=== PATIENT | male | born 1940 | race Caucasian/White ===

== ENCOUNTER 2016-12-04 11:12 | Inpatient (IN) | payer OTHER, MEDICARE ==
[~2016-12-04] VITALS: Ht 180.3 cm; Wt 94.1 kg
--- NOTE | ~2016-12-04 | CON ---
[place], [place] REPORT OF CONSULTATION NAME: [facility] #: [id number] UNIT #: [id number] ROOM: [facility] DOCTOR: ELISE WHITNEY PRIYA BIRTHDATE: [birth year] DOS: 12/05/2016 HISTORY OF PRESENT ILLNESS: This is a 76-year-old male who was admitted for his third digit of his left foot. The patient states that he dropped a hammer on his third left toe about 2 months ago. He has been applying ointment on it daily and the toe has become more painful and discolored over the course of 2 months. He went to see his director mobile media solutions in the [place] last week and they recommended him coming to [facility] as the toe has started to increase in size and become more infected. He denies any fevers, chills, nausea, vomiting. He denies any chest pain, shortness breath, lightheadedness, nausea, vomiting, abdominal pain and melena. PAST MEDICAL HISTORY: Diabetes, hyperlipidemia, hypertension. FAMILY HISTORY: None. SOCIAL HISTORY: Denies any illicit drug use. Consumes alcohol 2-3 times a day and has a history of smoking and he quit 3 years ago. ALLERGIES: No known drug allergies. MEDICATIONS: Please see MAR for current list of medications. REVIEW OF SYSTEMS: CONSTITUTIONAL: Denies nausea, vomiting, fever, chills. HEENT: Denies vision changes, hearing loss, nasal discharge, ear discharge and denies dysphagia. CARDIOVASCULAR: Denies chest pain, palpitations, lower extremity edema, diaphoresis. RESPIRATORY: Denies shortness of breath, cough, wheezing and dyspnea on exertion. ABDOMINAL: Denies abdominal pain, nausea, vomiting, diarrhea, constipation. GENITOURINARY: Denies dysuria, hematuria or increased frequency. NEUROLOGIC: Denies confusion, dizziness. Admits to decreased sensation to the digits bilateral. PSYCHIATRIC: Denies depression, anxiety and substance abuse. ENDOCRINE: Denies polydipsia or heat intolerance or cold intolerance. SKIN: Third digit is gangrenous. Denies any other lesions. PHYSICAL EXAMINATION: VITAL SIGNS: Temperature 97.9, pulse 92, blood pressure 132/58, respiratory rate 18. LABORATORY DATA: White count 7.3, hemoglobin 8.5, hematocrit 26.3, platelets 201. IMAGING: Left foot x-ray done, showed third digit soft tissue swelling with subcutaneous gas, suggestive of gas gangrene. No radiographic findings of osteomyelitis noted. ABIs were performed and demonstrate occlusion of the left common femoral artery and mid right femoral artery. [place], [place] REPORT OF CONSULTATION NAME: MARK RODRIGUEZ UNIT #: [id number] ROOM: [facility] DOCTOR: ELISE WHITNEY PRIYA BIRTHDATE: [birth year] LOWER EXTREMITY PHYSICAL EXAMINATION: DP and PT pulses are nonpalpable, bilateral. CFT is delayed by 5 seconds to digits 1 through 5 bilateral. There is no hair present to bilateral lower extremities. The skin appears to be shiny and in appearance. NEUROLOGIC: Protective sensation is decreased to digits 1 through 5 bilateral with some [place] monofilament. Decreased muscle tone and symmetry noted to bilateral lower extremities. MUSCULOSKELETAL: 4/5 muscle strength noted in bilateral lower extremities. There is no pain on palpation to the third digit of the left foot. Equinus contracture noted to bilateral lower extremities. There is also hammertoe contractures noted to digits 2 through 5 bilateral. DERMATOLOGIC: The third digit has a gangrenous appearance. An odor and discharge noted from the base of the proximal phalanx. Upon compression, there is minimal seropurulent drainage noted. There is localized erythema and edema and Calor noted to the dorsal aspect of the left foot. There are no other skin lesions or open lesions noted to bilateral lower extremities. ASSESSMENT: 1. 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 2. Diabetes mellitus with peripheral neuropathy. 3. Peripheral vascular disease. PLAN: 1. The patient is seen and examined. 2. Dressings consist of Betadine and dry sterile dressing. 3. The patient's vitals are stable. He will need vascular followup. He is already being sent to [place] for Vascular Surgery workup. 4. He will follow up with a director [employer] media [employer] at [place] and recommend an amputation to be performed to the third digit of the left foot. KATY WHITNEY DPM CM:CONSTR:REPORT OF CONSULTATION 1412 12/05/16 220 interface
[~2016-12-04 11:12] MED LIST: ASPIRIN81 M1 PO; B12100 MC1 PO; CINNAMON500 MG PO; HYDROCHLOROTHIA25 MG PO; LISINOPRIL20 MG PO; METFORMIN1000 MG PO; MULTIPLE VITAMI1 CAP PO; SIMVASTATIN40 MG PO; VICODIN 5/500 505 MG PO
[2016-12-04 11:44] VITALS: BP 126/47
[2016-12-04] MEDS ORDERED: KEFLEX500 M1 PO (11:51)
[2016-12-04] MEDS ORDERED: GLIPIZIDE5 MG PO (11:51)
[2016-12-04] MEDS ORDERED: LANTUS SOL100 UNIT/1 SQ (11:52)
[2016-12-04] MEDS ORDERED: NORVASC10 MG PO (11:53)
[2016-12-04 13:00] LABS: BASO % 0.1 % (0.0-1.0); EOS # 0.1 10*3/uL (0.0-0.4); EOS % 1.3 % (1.0-4.0); HEMATOCRIT 27.7 % (42.0-52.0); HEMOGLOBIN 9.1 g/dl (14.0-18.0); LYMPH # 0.8 10*3/uL (1.3-4.4); MEAN CELL VOLUME 91.1 fl (80.0-94.0); MEAN CORPUSCULAR HGB 29.9 pg (27.0-31.0); MEAN CORPUSCULAR HGB CONC 32.9 g/dl (33.0-37.0); MEAN PLATELET VOLUME 9.7 fl (9.6-12.3); MONO # 0.5 10*3/uL (0.1-1.0); MONO % 6.9 % (3.0-9.0); PLATELET COUNT AUTOMATED 202 10*3/uL (130-400); RED BLOOD COUNT 3.04 10*6/uL (4.50-5.90); RED CELL DISTRI WIDTH 13.2 % (0-14.5); WHITE BLOOD COUNT 7.6 10*3/uL (4.8-10.8)
[2016-12-04 13:09] LABS: ACT PARTIAL THROMBO TIME 27.1 SECONDS (20.8-31.5); INTERNATIONAL NORM RATIO 1.1 (2.0-3.5)
[2016-12-04 13:14] LABS: ALBUMIN 2.8 gm/dl (3.1-4.5); ALKALINE PHOSPHATASE 81 U/L (45-117); BUN 23 mg/dl (7-24); CHLORIDE 108 mmol/L (98-107); CREATININE 0.99 mg/dL (0.70-1.30); LIPASE 101 U/L (73-393); POTASSIUM 4.3 mmol/L (3.5-5.1); SGOT/AST 18 IU/L (3-35); SGPT/ALT 23 U/L (12-78); SODIUM 141 mmol/L (136-145); TOTAL PROTEIN 7.9 gm/dL (6.4-8.2); TROPONIN I < 0.015 ng/ml (<0.045)
--- NOTE | 2016-12-04 13:29 | NUR ---
REPORT RECEIVED FROM GERARDO PAULINO. PT VOICES NO C/O AT THIS TIME. VITALS STABLE. HEP LOCK INSERTED.LEFT 3 TOE BLACKENED. TOP OF FOOT IS RED,SWOLLEN,PP FAINT,CAP REFILL <3 SEC.--ARMAAN LEWIS RN
[2016-12-04 13:31] VITALS: BP 126/63
--- NOTE | 2016-12-04 14:00 | NUR ---
Time: 1399 A 76 year old MALE admitted to 5E under services of EARNEST KRISHNAN DO. Pt. arrived via stretcher from ER. Chief complaint: CELLULITIS OF AN ABCESS OF THE LEFT FOOT WWITH NECROSIS OF THE 3RD LEFT TOE.. MARY ANN ALEXANDRA
--- NOTE | 2016-12-04 14:08 | NUR ---
PT TO XRAY AT THIS TIME.---ARMAAN LEWIS RN
--- NOTE | 2016-12-04 14:49 | NUR ---
IV ZOSYN HANGING NOW.IV VANC SENT TO FLOOR ,NURSE MARY ANN MADE AWARE.---ARMAAN LEWIS RN
[2016-12-04 15:08] VITALS: BP 118/53
--- NOTE | 2016-12-04 15:50 | NUR ---
DR. JACK AND DR FROST WERE NOTIFIED AND FACE SHEET WAS FAXED TO THE OFFICE. DR ANGUIANO WAS NOTIFIED AND MEDICATIONS WERE REVIEWED.
[2016-12-04 16:00] VITALS: BP 127/54
--- NOTE | 2016-12-04 19:45 | NUR ---
PATIENT IS AWAKE ALERT, AMD ORIENTED X3. PLEASANT AND COOPERATIVE. LUNGS ARE CLEAR AND DIMINISHED THROUGHOUT LUNGFIELDS. ROOM AIR. ABDOMEN IS SOFT AND NON-TENDER UPON PALPATION, BOWEL SOUNDS ARE NROAMOCTIVE X 4 QUADS. LLE RED FROM MID CALF DOWN, 2+ EDEMA , 3RD TOE WRAPPED IN GAUZE, ABLE TO VISUALIZE THE TIP OF TOE,. BLACKISH GREEN IN COLOR, BASE OF TOE APPEARS TO BE BLISTERED YELLOWISH COLOR. NO IRENE TO RLE, PPP. PATIENT DENIES ANY PAIN OR DISCOMFORT. CALL LIGHT IS IN REACH.
[2016-12-04 20:10] VITALS: BP 131/59
--- NOTE | 2016-12-04 21:00 | NUR ---
PATIENT REQUESTED PAIN MEDICATION FOR C/O PAIN IN HIS LEFT FOOT. RATES THIS PAIN 9/10 ON PAIN SCALE. DESCRIBES PAIN THROBBING. PRN NORCO GIVEN AT THIS TIME. CALL LIGHT IS IN REACH.
[2016-12-05] VITALS: BP 121/57
[2016-12-05 06:25] LABS: BASO % 0.4 % (0.0-1.0); EOS # 0.1 10*3/uL (0.0-0.4); EOS % 1.1 % (1.0-4.0); HEMATOCRIT 26.3 % (42.0-52.0); HEMOGLOBIN 8.5 g/dl (14.0-18.0); LYMPH # 0.7 10*3/uL (1.3-4.4); MEAN CELL VOLUME 91.3 fl (80.0-94.0); MEAN CORPUSCULAR HGB 29.5 pg (27.0-31.0); MEAN CORPUSCULAR HGB CONC 32.3 g/dl (33.0-37.0); MONO # 0.6 10*3/uL (0.1-1.0); MONO % 7.6 % (3.0-9.0); NEUT # 5.8 10*3/uL (2.3-7.9); NEUT % 79.1 % (47.0-73.0); PLATELET COUNT AUTOMATED 201 10*3/uL (130-400); RED BLOOD COUNT 2.88 10*6/uL (4.50-5.90); RED CELL DISTRI WIDTH 13.1 % (0-14.5); WHITE BLOOD COUNT 7.3 10*3/uL (4.8-10.8)
[2016-12-05 06:54] LABS: ALBUMIN 2.6 gm/dl (3.1-4.5); ALKALINE PHOSPHATASE 71 U/L (45-117); BUN 18 mg/dl (7-24); CHLORIDE 111 mmol/L (98-107); CHOLESTEROL 103 mg/dL (<200); CREATININE 0.92 mg/dL (0.70-1.30); HDL CHOLESTEROL 24 mg/dl (40-60); LDL CHOLESTEROL 56 mg/dL (9-159); PHOSPHOROUS 4.5 mg/dL (2.5-4.9); POTASSIUM 3.6 mmol/L (3.5-5.1); SGOT/AST 16 IU/L (3-35); SGPT/ALT 20 U/L (12-78); SODIUM 144 mmol/L (136-145); TOTAL PROTEIN 7.6 gm/dL (6.4-8.2); TRIGLYCERIDES 114 mg/dl (<150); VLDL CHOLESTEROL 23 mg/dL (6-40)
--- NOTE | 2016-12-05 07:23 | NUR ---
PATIENTS BLOOD GLUCOSE RECHECKED WITH BEDSIDE GLUCOMETER AT THIS TIME BGM- 83. PATIENT DRINKING ORANGE JUICE AND PROVIDED WITH A SNACK. DENIES ANY S/S OF HYPOGLYCEMIA.
[2016-12-05 08:00] VITALS: BP 141/61
--- NOTE | 2016-12-05 08:10 | NUR ---
GLIPIZIDE WAS HELD THIS MORNING PER DR. POND FOR LOW BLOOD GLUCOSE. METHPHORMINE IS TO BE GIVEN AND BLOOD GLUCOSE IS TO BE RECHECK IN 1 HOUR.
[2016-12-05 08:39] LABS: VITAMIN D, 25-HYDROXY 31.7 ng/mL (30-100)
--- NOTE | 2016-12-05 09:00 | NUR ---
Head Rigger in to talk to patient. Patient states lives at home with . There are few steps in the home. Physician: jean claude Pharmacy: [facility] health services: none Patient's level of ADLs: MINIMAL ASSIST Patient has working utilities: all working DME: none Follow-up physician's appointment after d/c: will be made by hosptialist nurse director upon discharge Does patient want to access PORTAL?: no Discharge plan discussed with patient, patient lives at home with , states he gets around fine until lately, patient states he will be going home when able, also discussed with him VNA and he refused any at this time. AVELINA LARIOS
[2016-12-05 12:00] VITALS: BP 132/58
--- NOTE | 2016-12-05 14:20 | NUR ---
Discharge instructions reviewed with patient/family. Patient receptive and verbalizes understanding. Follow-up care arranged. Written instructions given to patient/family. Patient discharged to [facility] for further treatment. Transported by ambulance with family present. ENEIDA LANG
== END 2016-12-05 14:47 | disposition short-term general hospital (02) | DRG 299 ==
LOC: ED 11:12 → EDHOLD 13:43 → 5E 13:43 → EDHOLD 13:46 → 5E 14:12
PROVIDERS: Emergency Medicine; Internal Medicine; ADMIT Internal Medicine
DX: I70.262 Atherosclerosis of native arteries of extremities with gangrene, left leg (principal); A48.0 Gas gangrene; E11.52 Type 2 diabetes mellitus with diabetic peripheral angiopathy with gangrene; E44.0 Moderate protein-calorie malnutrition; L03.116 Cellulitis of left lower limb; E11.42 Type 2 diabetes mellitus with diabetic polyneuropathy; I70.263 Atherosclerosis of native arteries of extremities with gangrene, bilateral legs; E11.65 Type 2 diabetes mellitus with hyperglycemia; D64.9 Anemia, unspecified; D72.810 Lymphocytopenia; R79.82 Elevated C-reactive protein (CRP); E78.5 Hyperlipidemia, unspecified; I10 Essential (primary) hypertension; E66.3 Overweight; Z87.891 Personal history of nicotine dependence; Z79.4 Long term (current) use of insulin; Z79.899 Other long term (current) drug therapy; Z79.82 Long term (current) use of aspirin; Z68.28 Body mass index [BMI] 28.0-28.9, adult

== ENCOUNTER 2018-11-12 19:56 | Inpatient (IN) | payer OTHER ==
[~2018-11-12] VITALS: Ht 175.3 cm; Wt 97.6 kg
--- NOTE | ~2018-11-12 | EKG ---
[place], [place] ELECTROCARDIOGRAM REPORT NAME: MARK RODRIGUEZ UNIT #: [id number] ROOM: 502 DOCTOR: YASEMIN DRAFT REPORT BIRTHDATE: [birth year] [facility] Test Date: 2018-11-13 Test Time: 02:20:27 Pat Name: MARK RODRIGUEZ Department: Room: [facility] Gender: M Claim Clinician: : 1940 Requested By: BRIANNA ARECHIGA Order Number: [id number] Reading MD: Pete Olguin MD Measurements Intervals [place] Rate: 71 P: 81 [place]: 185 QRS: 73 QRSD: 122 T: -48 QT: 449 QTc: 488 Interpretive Statements Sinus rhythm PVC Nonspecific intraventricular conduction delay Borderline repolarization abnormality Electronically Signed On 11-13-2018 4:39:11 PDT by Pete Olguin MD CM:EKGRPT:ELECTROCARDIOGRAM REPORT [id number] BRIANNA MORAN DRAFT REPORT BRIANNA ARECHIGA DO
--- NOTE | ~2018-11-12 | EKG ---
[place], [place] ELECTROCARDIOGRAM REPORT NAME: MARK RODRIGUEZ UNIT #: [id number] ROOM: 502 DOCTOR: YASEMIN DRAFT REPORT BIRTHDATE: [birth year] [facility] Test Date: 2018-11-12 Test Time: 20:13:22 Pat Name: MARK RODRIGUEZ Department: Room: [facility] Gender: M Therapy Aide: : 1940 Requested By: BRIANNA ARECHIGA Order Number: [id number] Reading MD: Pete Olguin MD Measurements Intervals [place] Rate: 64 P: 67 [place]: 187 QRS: 72 QRSD: 98 T: -32 QT: 405 QTc: 418 Interpretive Statements Sinus rhythm Nonspecific T wave abnormalities Electronically Signed On 11-13-2018 4:33:12 PDT by Pete Olguin MD CM:EKGRPT:ELECTROCARDIOGRAM REPORT 12 0433 BRIANNA MORAN DRAFT REPORT BRIANNA ARECHIGA DO
--- NOTE | ~2018-11-12 | EKG ---
[place], [place] ELECTROCARDIOGRAM REPORT NAME: MARK RODRIGUEZ UNIT #: [id number] ROOM: 502 DOCTOR: YASEMIN DRAFT REPORT BIRTHDATE: [birth year] [facility] [place] Test Date: 2018-11-12 Test Time: 23:12:15 Pat Name: MARK RODRIGUEZ Department: Room: [facility] Gender: M Artificial Teeth Inspector: : 1940 Requested By: BRIANNA ARECHIGA Order Number: [id number] Reading MD: Pete Olguin MD Measurements Intervals [place] Rate: 84 P: 88 [place]: 169 QRS: 68 QRSD: 114 T: -68 QT: 409 QTc: 484 Interpretive Statements Sinus rhythm with supravenrticular bigeminy Nonspecific intraventricular conduction delay Nonspecific T wave abnormalities Electronically Signed On 11-13-2018 4:38:31 PDT by Pete Olguin MD CM:EKGRPT:ELECTROCARDIOGRAM REPORT [id number] BRIANNA MORAN DRAFT REPORT BRIANNA ARECHIGA DO
[~2018-11-12 19:56] MED LIST changes: +ALOGLIPTIN12.5 MG PO; +ATORVASTATIN CA80 M1 PO; +Carafate1 GM PO; +GLIPIZIDE5 MG PO; +IRON18 MG PO; +KEFLEX500 M1 PO; +LANTUS SOL100 UNIT/1 SQ; +LOPRESSOR25 MG PO; +NATURE'S BLEND500 M1 PO; +NORVASC10 MG PO; +PLAVIX75 M1 PO; +PROTONIX TR40 M1 PO; +VITAMIN C500 M8 PO
[2018-11-12 19:59] VITALS: BP 117/48
[2018-11-12 20:27] LABS: BASO % 0.8 % (0.0-1.0); EOS # 0.1 10*3/uL (0.0-0.4); EOS % 2.9 % (1.0-4.0); HEMATOCRIT 25.9 % (42.0-52.0); HEMOGLOBIN 8.6 g/dl (14.0-18.0); LYMPH # 0.3 10*3/uL (1.3-4.4); LYMPH % 10.3 % (27.0-41.0); MEAN CELL VOLUME 88.1 fl (80.0-94.0); MEAN CORPUSCULAR HGB 29.3 pg (27.0-31.0); MEAN CORPUSCULAR HGB CONC 33.2 g/dl (33.0-37.0); MEAN PLATELET VOLUME 11.3 fl (9.6-12.3); MONO # 0.3 10*3/uL (0.1-1.0); MONO % 13.6 % (3.0-9.0); NEUT # 1.8 10*3/uL (2.3-7.9); NEUT % 72.4 % (47.0-73.0); PLATELET COUNT AUTOMATED 100 10*3/uL (130-400); RED BLOOD COUNT 2.94 10*6/uL (4.50-5.90); RED CELL DISTRI WIDTH 14.8 % (0-14.5); WHITE BLOOD COUNT 2.4 10*3/uL (4.8-10.8)
[2018-11-12 20:42] LABS: ACT PARTIAL THROMBO TIME 28.5 SECONDS (20.0-32.1); INTERNATIONAL NORM RATIO 1.1 (2.0-3.5)
[2018-11-12 20:48] LABS: ALBUMIN 3.1 gm/dl (3.1-4.5); CREATININE 2.18 mg/dL (0.70-1.30); POTASSIUM 3.5 mmol/L (3.5-5.1); TOTAL PROTEIN 6.7 gm/dL (6.4-8.2)
[2018-11-12 20:49] LABS: TROPONIN I 0.025 ng/ml (<0.045)
[2018-11-12 20:57] VITALS: BP 112/44
--- NOTE | 2018-11-12 20:57 | NUR ---
FEELING A BIT BETTER SINCE RECEIVING NEBULIZER. NO LONGER HAS AUDIBLE WHEEZING AND HAS FAINT EXPIRATORY WHEEZING AND INCREASED AIR FLOW. UPDATED AND DENIES ANY NEEDS. REPORTS PATIENT DOES NOT TAKE NEBULIZERS AT HOME AND DOES NOT WANT TO DO MUCH TO TAKE CARE OF HIMSELF. STRESSED THE IMPORTNACE OF MEDICATION COMPLIANCE, MAINTAINING HIS PHYSICAL ACTIVITY LEVEL TOLERATED, WEIGHING HIMSELF DAILY AND KEEPING TRACK OF IT, WHEN TO CALL HIS DOCTOR, ADN REDUCING SALT INTAKE. HER VERBALIZED UNDERSTANDING.
[2018-11-12 22:33] VITALS: BP 112/45
--- NOTE | 2018-11-12 22:33 | NUR ---
UPDATED AND HOB LOWERED FOR COMFORT. ADVISED STILL AWAITING A RESULT BUT ASSURED PROVIDER WOULD BE IN SOON ALL RESULTS ARE BACK. RESTING COMFORTABLY AND HAS BEEN NAPPING INTERMITTENTLY. REMAINS AT THE BEDSIDE. WILL CONTINUE TO MONITOR.
--- NOTE | 2018-11-12 23:40 | NUR ---
is leaving for the night and is taking his clothes and bag of medications he brought with him.
--- NOTE | 2018-11-13 00:01 | NUR ---
ASLEEP WITH REGULAR EASY RESPIRATIONS. PULSE OXIMETER READING 96% ON ROOM AIR AND REMAINS NSR ON MONITOR. AWAITING ROOM ASSIGNMENT AND IS AWARE OF ADMISSION.
--- NOTE | 2018-11-13 00:21 | NUR ---
Received room assignment. Called Torrie to advise of ETA to room.
[2018-11-13 00:37] VITALS: BP 108/44
[2018-11-13 00:45] VITALS: BP 122/58
--- NOTE | 2018-11-13 00:45 | NUR ---
A 78, admitted to 5E, under the services of HI Pisano DO with a diagnosis of COPD, JOSE. Chief complaint is BLE EDEMA. Patient arrived via bed from ER. Monitor applied. Initial assessment completed. Vital signs taken and recorded. Orders received. See assessment for past medical history, medications and allergies. Patient and/or family oriented to unit. [address] visitation policy reviewed. Clothing/patient valuable form completed. AMBER HICKMAN J
[2018-11-13] MEDS ORDERED: PROTONIX40 MG PO (00:57)
--- NOTE | 2018-11-13 01:16 | NUR ---
ASKED DR. ARTHUR IF HE WOULD LIKE TO CONTINUE WITH THE PATIENT HAVING LOVENOX SINCE HE WAS ANEMIC AND RECIEVED 3 UNITS OF BLOOD JUST 2 WEEKS AGO. HE STATED THAT HE THINKS THAT HE SHOULD BE ON SOMETHING PROPHALACTICALLY AND IS GOING TO LEAVE IT ON
--- NOTE | 2018-11-13 03:06 | NUR ---
PATIENT STATES THAT ALL MEDICATION FROM HIS DISCHARGE PAPERWORK FROM HIS LAST STAY ARE THE MEDICATIONS THAT HIS IS CURRENTLY TAKING
[2018-11-13 06:50] LABS: HEMATOCRIT 24.8 % (42.0-52.0); HEMOGLOBIN 8.3 g/dl (14.0-18.0); MEAN CELL VOLUME 87.6 fl (80.0-94.0); MEAN CORPUSCULAR HGB 29.3 pg (27.0-31.0); MEAN CORPUSCULAR HGB CONC 33.5 g/dl (33.0-37.0); PLATELET COUNT AUTOMATED 89 10*3/uL (130-400); RED BLOOD COUNT 2.83 10*6/uL (4.50-5.90); RED CELL DISTRI WIDTH 14.6 % (0-14.5)
[2018-11-13 07:00] LABS: WHITE BLOOD COUNT 1.3 10*3/uL (4.8-10.8)
--- NOTE | 2018-11-13 07:01 | NUR ---
NOTIFIED DR. ARTHUR OF CRITICAL WBC, 1.3. NO NEW ORDERS RECEIVED. WILL CONTINUE TO MONITOR.
[2018-11-13 07:07] LABS: ALBUMIN 2.9 gm/dl (3.1-4.5); CREATININE 1.94 mg/dL (0.70-1.30); PHOSPHOROUS 4.6 mg/dL (2.5-4.9); POTASSIUM 3.5 mmol/L (3.5-5.1); TOTAL PROTEIN 6.5 gm/dL (6.4-8.2)
[2018-11-13 07:47] LABS: TOTAL CELLS COUNTED 100 #CELLS
[2018-11-13 07:48] LABS: BURR CELLS FEW; PLATELET SUFFICIENCY LOW (NORMAL)
--- NOTE | 2018-11-13 11:29 | NUR ---
NOTIFIED PT'S FSBS WAS 413 AND WILL BE GIVING 14 UNITS OF NOVOLOG
[2018-11-13 12:00] VITALS: BP 118/53
[2018-11-13 16:00] VITALS: BP 113/54
--- NOTE | 2018-11-13 16:18 | NUR ---
NOTIFIED THAT PT'S FSBS WAS 465. NO FURTHER ORDERS AT THIS TIME.
--- NOTE | 2018-11-13 17:03 | NUR ---
RECHECK FSBS 475 PT WILL RECEIVE 22 UNITS OF INSULIN.
--- NOTE | 2018-11-13 19:40 | NUR ---
PT RESTING IN BED. RESP-EASY AND REGULAR. NO C/O AT THIS TIME. CALL LIGHT IN REACH.
[2018-11-13 20:00] VITALS: BP 114/58
--- NOTE | 2018-11-13 21:40 | NUR ---
CALLED DR. JOSEPH ADRIAN PT REQUESTING COUGH MEDICATION. SHE WILL ORDER SOMETHING.
--- NOTE | 2018-11-13 21:53 | NUR ---
PT RESTING IN BED. TOLERATED ROUTINE MEDICATION. MEDICATED WITH ROBITUSSIN PER PRN ORDER FOR HARSH NONPROD COUGH. BSG-472, SEE EMAR. CALL LIGHT IN REACH.
[2018-11-14] VITALS: BP 109/51
--- NOTE | 2018-11-14 | NUR ---
PT RESTING IN BED WITH EYES CLOSED. RESP-EASY AND REGULAR. MEDICATION SEEMS TO BE EFFECTIVE, NO COUGHING NOTED. CALL LIGHT IN REACH.
--- NOTE | 2018-11-14 04:00 | NUR ---
SLEEPING IN BED. RESP-EASY AND REGULAR. CALL LIGHT IN REACH.
--- NOTE | 2018-11-14 06:00 | NUR ---
TOLERATED ROUTINE MED WITH NO PROBLEM. BSG-387, SEE EMAR. NO C/O AT THIS TIME. CALL LIGHT IN REACH.
[2018-11-14 06:35] LABS: HEMATOCRIT 23.1 % (42.0-52.0); HEMOGLOBIN 7.7 g/dl (14.0-18.0); LYMPH # 0.2 10*3/uL (1.3-4.4); LYMPH % 4.2 % (27.0-41.0); MEAN CELL VOLUME 85.6 fl (80.0-94.0); MEAN CORPUSCULAR HGB 28.5 pg (27.0-31.0); MEAN CORPUSCULAR HGB CONC 33.3 g/dl (33.0-37.0); MEAN PLATELET VOLUME 11.8 fl (9.6-12.3); MONO # 0.3 10*3/uL (0.1-1.0); MONO % 8.5 % (3.0-9.0); NEUT # 3.3 10*3/uL (2.3-7.9); PLATELET COUNT AUTOMATED 94 10*3/uL (130-400); RED CELL DISTRI WIDTH 14.6 % (0-14.5); WHITE BLOOD COUNT 3.8 10*3/uL (4.8-10.8)
[2018-11-14 06:45] LABS: CREATININE 2.05 mg/dL (0.70-1.30); POTASSIUM 3.4 mmol/L (3.5-5.1)
[2018-11-14 08:00] VITALS: BP 126/58
[2018-11-14 12:00] VITALS: BP 125/55
[2018-11-14 16:00] VITALS: BP 109/53
[2018-11-14 20:00] VITALS: BP 110/54
[2018-11-15] VITALS: BP 113/58
--- NOTE | 2018-11-15 01:09 | NUR ---
PATIENT RESTING IN BED WITH NO S/S OF DISTRESS. BED IN LOWEST POSITION, CALL LIGHT IN REACH
[2018-11-15 06:39] LABS: CREATININE 2.23 mg/dL (0.70-1.30); POTASSIUM 4.2 mmol/L (3.5-5.1)
[2018-11-15 06:40] LABS: HEMATOCRIT 24.8 % (42.0-52.0); MEAN CORPUSCULAR HGB 28.7 pg (27.0-31.0); MEAN CORPUSCULAR HGB CONC 32.3 g/dl (33.0-37.0); MEAN PLATELET VOLUME 11.9 fl (9.6-12.3); PLATELET COUNT AUTOMATED 105 10*3/uL (130-400); RED BLOOD COUNT 2.79 10*6/uL (4.50-5.90); RED CELL DISTRI WIDTH 14.9 % (0-14.5); WHITE BLOOD COUNT 5.3 10*3/uL (4.8-10.8)
[2018-11-15 07:42] LABS: MEAN CELL VOLUME 88.9 fl (80.0-94.0)
--- NOTE | 2018-11-15 07:57 | NUR ---
PT RESTING IN BED. NO DISTRESS NOTED. WILL MONITOR
[2018-11-15 08:00] VITALS: BP 103/56
[2018-11-15 08:17] LABS: PLATELET SUFFICIENCY LOW (NORMAL); TOTAL CELLS COUNTED 100 #CELLS
[2018-11-15 08:18] LABS: OVALOCYTES FEW; POLYCHROMASIA SLIGHT
--- NOTE | 2018-11-15 10:57 | NUR ---
CALLED AND SPOKE WITH DR DESAI REGARDING PT MEDS AND BP NEW ORDERS RECEIVED
--- NOTE | 2018-11-15 11:55 | NUR ---
DR PEREZ NOTIFIED OF CONSULT
[2018-11-15 12:00] VITALS: BP 118/52
[2018-11-15 16:00] VITALS: BP 126/55
[2018-11-15 20:00] VITALS: BP 127/54
--- NOTE | 2018-11-15 20:33 | NUR ---
ROBITUSSIN GIVEN FOR C/O COUGH. WILL MONITOR
--- NOTE | 2018-11-15 21:57 | NUR ---
JASBIRITUSSIN EFFECTIVE PER PATIENT
[2018-11-16] VITALS: BP 114/75
[2018-11-16 04:02] LABS: BILIRUBIN NEGATIVE (NEGATIVE); BLOOD TRACE-LYSED (NEGATIVE); CLARITY CLEAR (CLEAR); COLOR YELLOW (YELLOW); GLUCOSE NEGATIVE (NEGATIVE); KETONE NEGATIVE (NEGATIVE); LEUKO ESTERASE NEGATIVE (NEGATIVE); NITRITE NEGATIVE (NEGATIVE); SPECIFIC GRAVITY 1.015 (1.005-1.030); UROBILINOGEN 0.2 E.U./dl (0.2-1.0)
[2018-11-16 04:12] LABS: URINE CREATININE RANDOM 92.8 mg/dL
[2018-11-16 04:22] LABS: BACTERIA 1+; RBC 0-2 rbc/hpf (0-2)
[2018-11-16 07:16] LABS: HEMATOCRIT 24.9 % (42.0-52.0); HEMOGLOBIN 7.9 g/dl (14.0-18.0); LYMPH # 0.2 10*3/uL (1.3-4.4); LYMPH % 3.9 % (27.0-41.0); MEAN CELL VOLUME 91.9 fl (80.0-94.0); MEAN CORPUSCULAR HGB 29.2 pg (27.0-31.0); MEAN CORPUSCULAR HGB CONC 31.7 g/dl (33.0-37.0); MEAN PLATELET VOLUME 12.5 fl (9.6-12.3); MONO # 0.3 10*3/uL (0.1-1.0); NEUT # 4.6 10*3/uL (2.3-7.9); NEUT % 88.9 % (47.0-73.0); PLATELET COUNT AUTOMATED 108 10*3/uL (130-400); RED BLOOD COUNT 2.71 10*6/uL (4.50-5.90); RED CELL DISTRI WIDTH 15.1 % (0-14.5); WHITE BLOOD COUNT 5.2 10*3/uL (4.8-10.8)
[2018-11-16 07:39] LABS: CREATININE 1.83 mg/dL (0.70-1.30)
[2018-11-16 08:00] VITALS: BP 138/60
--- NOTE | 2018-11-16 08:31 | NUR ---
PT RESTING IN BED. NO DISTRESS NOTED. WILL MONITOR
--- NOTE | 2018-11-16 14:00 | NUR ---
SPOKE WITH DR PEREZ REGARDING CXR. NEW ORDERS RECEIVED
--- NOTE | 2018-11-16 14:57 | NUR ---
Sales Applications Engineer in to talk to patient. Patient states lives at HOME with . There are BASEMENT steps in the home. Physician: SOLOMON [facility]acy: [facility] health services: NONE Patient's level of ADLs: INDEPENDENT Patient has working utilities: YES DME: NONE Follow-up physician's appointment after d/c: WILL BE MADE BY HOSPTIALIST NURSE DIRECTOR ON DISCHARGE Does patient want to access PORTAL?: NO Discharge plan PT LIVES AT HOME WITH HIS AND STATES HE WILL RETURN HOME AT DISCHARGE WITH NO NEW NEEDS. WILL CONTINUE TO FOLLOW. STATES HE WILL HAVE A RIDE HOME. PANKAJ NAVARRETE
[2018-11-16 16:00] VITALS: BP 127/66
[2018-11-16 20:00] VITALS: BP 127/66
[2018-11-17] VITALS: BP 128/70
[2018-11-17 06:31] LABS: HEMATOCRIT 26.4 % (42.0-52.0); HEMOGLOBIN 8.2 g/dl (14.0-18.0); LYMPH # 0.2 10*3/uL (1.3-4.4); LYMPH % 4.1 % (27.0-41.0); MEAN CELL VOLUME 93.3 fl (80.0-94.0); MEAN CORPUSCULAR HGB CONC 31.1 g/dl (33.0-37.0); MEAN PLATELET VOLUME 11.5 fl (9.6-12.3); MONO # 0.3 10*3/uL (0.1-1.0); NEUT # 4.7 10*3/uL (2.3-7.9); NEUT % 88.2 % (47.0-73.0); PLATELET COUNT AUTOMATED 119 10*3/uL (130-400); RED BLOOD COUNT 2.83 10*6/uL (4.50-5.90); RED CELL DISTRI WIDTH 15.1 % (0-14.5); WHITE BLOOD COUNT 5.3 10*3/uL (4.8-10.8)
[2018-11-17 06:41] LABS: CREATININE 1.84 mg/dL (0.70-1.30); POTASSIUM 4.4 mmol/L (3.5-5.1)
[2018-11-17 08:00] VITALS: BP 124/62; BP 130/76
--- NOTE | 2018-11-17 09:15 | NUR ---
PT RESTING IN BED. NO DISTRESS NOTED. WILL MONITOR
[2018-11-17 12:00] VITALS: BP 128/80
--- NOTE | 2018-11-17 12:33 | NUR ---
EVERAGER IN TO TALK WITH PT TO SEE WHAT HOME HEALTH COMPANY HE WANTED. PT STATES HE DOES NOT WANT HOME HEALTH. STATES I HAD IT BEFORE WHEN I HAD MY TOE AMPUTATED FOR DRESSING CHANGES, BUT NOW I AM ABLE TO DO MY OWN SHOWER AND TAKE CARE OF MYSELF AT HOME. I DON'T THINK I NEED IT. INSTRUCTED PT TO HAVE NURSE CALL ME IF HE CHANGED HIS MIND.
[2018-11-17] MEDS ORDERED: LASIX20 MG PO (14:37)
--- NOTE | 2018-11-17 15:22 | NUR ---
Discharge instructions reviewed with patient/family. Patient receptive and verbalizes understanding. Follow-up care arranged. Written instructions given to patient/family. GLORIA SOLANO
== END 2018-11-17 15:22 | disposition home or self-care (01) | DRG 190 ==
LOC: ED 19:56 → EDHOLD 11-13 00:06 → 5E 11-13 00:06
PROVIDERS: Emergency Medicine; Internal Medicine; Internal Medicine Nephrology; ADMIT Internal Medicine
DX: J44.1 Chronic obstructive pulmonary disease with (acute) exacerbation (principal); N17.0 Acute kidney failure with tubular necrosis; D61.818 Other pancytopenia; E44.0 Moderate protein-calorie malnutrition; E83.41 Hypermagnesemia; E11.65 Type 2 diabetes mellitus with hyperglycemia; Z79.4 Long term (current) use of insulin; D64.9 Anemia, unspecified; I12.9 Hypertensive chronic kidney disease with stage 1 through stage 4 chronic kidney disease, or unspecified chronic kidney disease; N18.9 Chronic kidney disease, unspecified; E11.22 Type 2 diabetes mellitus with diabetic chronic kidney disease; E78.5 Hyperlipidemia, unspecified; I25.2 Old myocardial infarction; E66.3 Overweight; Z98.42 Cataract extraction status, left eye; Z98.41 Cataract extraction status, right eye; Z87.891 Personal history of nicotine dependence; Z72.89 Other problems related to lifestyle; Z83.3 Family history of diabetes mellitus; Z80.8 Family history of malignant neoplasm of other organs or systems; Z79.84 Long term (current) use of oral hypoglycemic drugs; Z68.31 Body mass index [BMI] 31.0-31.9, adult

== ENCOUNTER → 2018-11-24 | Outpatient (CLI) | payer OTHER ==
[~2018-11-24] MED LIST changes: +LASIX20 MG PO; +PROTONIX40 MG PO
== END | disposition home or self-care (01) ==
LOC: RAD 13:58
DX: J44.9 Chronic obstructive pulmonary disease, unspecified (principal)

== ENCOUNTER → 2020-05-31 | Outpatient (CLI) | payer OTHER | END | disposition home or self-care (01) | LOC: CT 08:40 | PROVIDERS: ATTEND Nurse Practitioner Family | DX: I65.29 Occlusion and stenosis of unspecified carotid artery (principal) ==

== ENCOUNTER 2020-07-04 22:55 | Inpatient (IN) | payer OTHER ==
[~2020-07-04] VITALS: Ht 170.1 cm; Wt 97.0 kg
[2020-07-04 23:20] VITALS: BP 129/52
[2020-07-04 23:29] LABS: MEAN CELL VOLUME 99.5 fl (80.0-94.0); MEAN CORPUSCULAR HGB 31.7 pg (27.0-31.0); MEAN CORPUSCULAR HGB CONC 31.9 g/dl (33.0-37.0); PLATELET COUNT AUTOMATED 132 10*3/uL (130-400); RED BLOOD COUNT 2.05 10*6/uL (4.50-5.90); RED CELL DISTRI WIDTH 17.3 % (0-14.5); WHITE BLOOD COUNT 3.7 10*3/uL (4.8-10.8)
[2020-07-04 23:32] LABS: HEMATOCRIT 20.4 % (42.0-52.0)
[2020-07-04 23:45] LABS: MICROCYTOSIS SLIGHT; PLATELET SUFFICIENCY LOW (NORMAL); TOTAL CELLS COUNTED 100 #CELLS
[2020-07-04 23:48] LABS: ALBUMIN 3.4 gm/dl (3.1-4.5); ALKALINE PHOSPHATASE 70 U/L (45-117); BUN 32 mg/dl (7-24); CHLORIDE 107 mmol/L (98-107); CREATININE 1.85 mg/dL (0.70-1.30); SGOT/AST 20 IU/L (3-35); SGPT/ALT 33 U/L (12-78); SODIUM 140 mmol/L (136-145); TOTAL PROTEIN 6.6 gm/dL (6.4-8.2); TROPONIN I < 0.015 ng/ml (<0.045)
[2020-07-04 23:50] VITALS: BP 142/63
[2020-07-05] VITALS (27 sets, daily range): BP systolic 108–143; BP diastolic 39–81
[2020-07-05 05:54] LABS: CREATININE 1.46 mg/dL (0.70-1.30); POTASSIUM 4.1 mmol/L (3.5-5.1); TROPONIN I 0.04 ng/ml (<0.045)
[2020-07-05 06:10] LABS: VITAMIN D, 25-HYDROXY 36.5 ng/mL (30-100)
[2020-07-05 06:14] LABS: MEAN CELL VOLUME 96.7 fl (80.0-94.0); MEAN CORPUSCULAR HGB 31.1 pg (27.0-31.0); MEAN CORPUSCULAR HGB CONC 32.2 g/dl (33.0-37.0); MEAN PLATELET VOLUME 11.1 fl (9.6-12.3); PLATELET COUNT AUTOMATED 136 10*3/uL (130-400); RED BLOOD COUNT 2.09 10*6/uL (4.50-5.90); RED CELL DISTRI WIDTH 16.7 % (0-14.5); WHITE BLOOD COUNT 3.9 10*3/uL (4.8-10.8)
[2020-07-05 06:20] LABS: HEMATOCRIT 20.2 % (42.0-52.0)
[2020-07-05 06:37] LABS: BASOPHILS 1 % (0-1); BURR CELLS FEW; PLATELET SUFFICIENCY NORMAL (NORMAL); POLYCHROMASIA SLIGHT; SCHISTOCYTES FEW; TOTAL CELLS COUNTED 100 #CELLS
[2020-07-05 14:56] LABS: BASO % 0.8 % (0.0-1.0); EOS # 0.1 10*3/uL (0.0-0.4); HEMATOCRIT 24.2 % (42.0-52.0); LYMPH # 0.8 10*3/uL (1.3-4.4); LYMPH % 19.7 % (27.0-41.0); MEAN CELL VOLUME 96.8 fl (80.0-94.0); MEAN CORPUSCULAR HGB 31.6 pg (27.0-31.0); MEAN CORPUSCULAR HGB CONC 32.6 g/dl (33.0-37.0); MEAN PLATELET VOLUME 10.3 fl (9.6-12.3); MONO # 0.3 10*3/uL (0.1-1.0); MONO % 8.1 % (3.0-9.0); NEUT # 2.7 10*3/uL (2.3-7.9); NEUT % 68.9 % (47.0-73.0); PLATELET COUNT AUTOMATED 124 10*3/uL (130-400); RED CELL DISTRI WIDTH 16.4 % (0-14.5)
[2020-07-05] MEDS ORDERED: ASPIRIN ADULT L81 M1 PO (16:08)
[2020-07-05] MEDS ORDERED: PEPCID40 MG PO (16:09)
[2020-07-05] MEDS ORDERED: ZESTRIL2.5 MG PO (16:11)
[2020-07-05] MEDS ORDERED: CRESTOR5 MG PO (16:12)
[2020-07-05] MEDS ORDERED: VICTOZA 2-0.6 MG/0.1 SQ (16:15)
[2020-07-05] MEDS ORDERED: CENTRUM SILVER1 EAC2 PO (16:16)
[2020-07-05] MEDS ORDERED: FEOSOL BIFERA 228 MG PO (16:16)
[2020-07-06] VITALS (8 sets, daily range): BP systolic 98–140; BP diastolic 22–67
[2020-07-06 07:08] LABS: BASO % 0.6 % (0.0-1.0); EOS # 0.1 10*3/uL (0.0-0.4); EOS % 2.5 % (1.0-4.0); HEMATOCRIT 30.3 % (42.0-52.0); LYMPH # 1.3 10*3/uL (1.3-4.4); LYMPH % 25.7 % (27.0-41.0); MEAN CELL VOLUME 95.9 fl (80.0-94.0); MEAN CORPUSCULAR HGB 31.3 pg (27.0-31.0); MEAN CORPUSCULAR HGB CONC 32.7 g/dl (33.0-37.0); MEAN PLATELET VOLUME 10.9 fl (9.6-12.3); MONO # 0.4 10*3/uL (0.1-1.0); NEUT # 3.2 10*3/uL (2.3-7.9); NEUT % 62.8 % (47.0-73.0); RED BLOOD COUNT 3.16 10*6/uL (4.50-5.90); RED CELL DISTRI WIDTH 16.8 % (0-14.5); WHITE BLOOD COUNT 5.1 10*3/uL (4.8-10.8)
[2020-07-06 07:21] LABS: PLATELET COUNT AUTOMATED 171 10*3/uL (130-400)
[2020-07-07] VITALS: BP 123/56
[2020-07-07 06:19] LABS: BASO % 0.6 % (0.0-1.0); EOS # 0.1 10*3/uL (0.0-0.4); EOS % 2.7 % (1.0-4.0); LYMPH # 0.9 10*3/uL (1.3-4.4); LYMPH % 25.4 % (27.0-41.0); MEAN CELL VOLUME 95.6 fl (80.0-94.0); MEAN CORPUSCULAR HGB 31.6 pg (27.0-31.0); MEAN CORPUSCULAR HGB CONC 33.1 g/dl (33.0-37.0); MEAN PLATELET VOLUME 10.3 fl (9.6-12.3); MONO # 0.3 10*3/uL (0.1-1.0); MONO % 8.8 % (3.0-9.0); NEUT # 2.1 10*3/uL (2.3-7.9); NEUT % 62.2 % (47.0-73.0); PLATELET COUNT AUTOMATED 132 10*3/uL (130-400); RED BLOOD COUNT 2.72 10*6/uL (4.50-5.90); RED CELL DISTRI WIDTH 15.9 % (0-14.5); WHITE BLOOD COUNT 3.4 10*3/uL (4.8-10.8)
[2020-07-07 06:59] LABS: BUN 21 mg/dl (7-24); CHLORIDE 108 mmol/L (98-107); CREATININE 1.25 mg/dL (0.70-1.30); POTASSIUM 3.7 mmol/L (3.5-5.1); SODIUM 139 mmol/L (136-145)
[2020-07-07 08:00] VITALS: BP 128/51
[2020-07-07 12:00] VITALS: BP 139/57
[2020-07-07 13:25] LABS: BASO % 0.7 % (0.0-1.0); EOS # 0.1 10*3/uL (0.0-0.4); EOS % 2.4 % (1.0-4.0); HEMATOCRIT 29.3 % (42.0-52.0); LYMPH # 0.8 10*3/uL (1.3-4.4); MEAN CELL VOLUME 95.1 fl (80.0-94.0); MEAN CORPUSCULAR HGB 31.2 pg (27.0-31.0); MEAN CORPUSCULAR HGB CONC 32.8 g/dl (33.0-37.0); MEAN PLATELET VOLUME 10.4 fl (9.6-12.3); MONO # 0.3 10*3/uL (0.1-1.0); MONO % 7.7 % (3.0-9.0); NEUT # 2.9 10*3/uL (2.3-7.9); PLATELET COUNT AUTOMATED 161 10*3/uL (130-400); RED BLOOD COUNT 3.08 10*6/uL (4.50-5.90); RED CELL DISTRI WIDTH 15.9 % (0-14.5); WHITE BLOOD COUNT 4.1 10*3/uL (4.8-10.8)
[2020-07-07] MEDS ORDERED: OMEPRAZOLE40 MG PO (15:05)
== END 2020-07-07 16:15 | disposition home or self-care (01) | DRG 377 ==
LOC: ED 22:55 → 5E 07-05 00:08 → EDHOLD 07-05 00:08 → 5E 07-05 12:45
PROVIDERS: Internal Medicine; Student in an Organized Health Care Education/Training Program; ADMIT Family Medicine; ATTEND Family Medicine
PROC: 0DB78ZX Excision of Stomach, Pylorus, Via Natural or Artificial Opening Endoscopic, Diagnostic (ICD-10-PCS; principal; 2020-07-05)
PROC: 30233N1 Transfusion of Nonautologous Red Blood Cells into Peripheral Vein, Percutaneous Approach (ICD-10-PCS; 2020-07-06)
PROC: 0DBK8ZZ Excision of Ascending Colon, Via Natural or Artificial Opening Endoscopic (ICD-10-PCS; 2020-07-06)
PROC: 0DBN8ZZ Excision of Sigmoid Colon, Via Natural or Artificial Opening Endoscopic (ICD-10-PCS; 2020-07-06)
DX: K57.31 Diverticulosis of large intestine without perforation or abscess with bleeding (principal); N17.0 Acute kidney failure with tubular necrosis; E87.2 Acidosis; D72.819 Decreased white blood cell count, unspecified; D53.9 Nutritional anemia, unspecified; E11.65 Type 2 diabetes mellitus with hyperglycemia; I10 Essential (primary) hypertension; E78.5 Hyperlipidemia, unspecified; E83.41 Hypermagnesemia; Z79.4 Long term (current) use of insulin; Z98.42 Cataract extraction status, left eye; Z98.41 Cataract extraction status, right eye; Z95.820 Peripheral vascular angioplasty status with implants and grafts; Z87.891 Personal history of nicotine dependence; Z83.3 Family history of diabetes mellitus; I25.2 Old myocardial infarction

== ENCOUNTER 2020-10-07 11:34 | Emergency (ER) | payer OTHER ==
[~2020-10-07] VITALS: Wt 99.8 kg
[~2020-10-07 11:34] MED LIST changes: +ASPIRIN ADULT L81 M1 PO; +CENTRUM SILVER1 EAC2 PO; +CRESTOR5 MG PO; +FEOSOL BIFERA 228 MG PO; +OMEPRAZOLE40 MG PO; +PEPCID40 MG PO; +VICTOZA 2-0.6 MG/0.1 SQ; +ZESTRIL2.5 MG PO
== END 2020-10-07 14:21 | disposition home or self-care (01) ==
LOC: ED 11:34
DX: S51.812A Laceration without foreign body of left forearm, initial encounter (principal); S00.03XA Contusion of scalp, initial encounter; E11.9 Type 2 diabetes mellitus without complications; E78.5 Hyperlipidemia, unspecified; I10 Essential (primary) hypertension; I25.2 Old myocardial infarction; Z79.899 Other long term (current) drug therapy; Z79.4 Long term (current) use of insulin; Z79.82 Long term (current) use of aspirin; Z87.891 Personal history of nicotine dependence; Z98.890 Other specified postprocedural states; W01.0XXA Fall on same level from slipping, tripping and stumbling without subsequent striking against object, initial encounter; Y93.89 Activity, other specified; Y92.89 Other specified places as the place of occurrence of the external cause; Y99.8 Other external cause status

== ENCOUNTER → 2020-11-13 | Outpatient (CLI) | payer OTHER | END | disposition home or self-care (01) | LOC: US 14:29 | PROVIDERS: ATTEND Nurse Practitioner Family | DX: I65.23 Occlusion and stenosis of bilateral carotid arteries (principal) ==

== ENCOUNTER 2021-10-18 09:54 | Emergency (ER) | payer OTHER ==
[~2021-10-18] VITALS: Wt 99.8 kg
== END 2021-10-18 14:35 | disposition home or self-care (01) ==
LOC: ED 09:54
DX: S62.314A Displaced fracture of base of fourth metacarpal bone, right hand, initial encounter for closed fracture (principal); S62.316A Displaced fracture of base of fifth metacarpal bone, right hand, initial encounter for closed fracture; S09.90XA Unspecified injury of head, initial encounter; Z79.899 Other long term (current) drug therapy; Z79.82 Long term (current) use of aspirin; Z87.891 Personal history of nicotine dependence; W18.39XA Other fall on same level, initial encounter; Y93.89 Activity, other specified; Y92.89 Other specified places as the place of occurrence of the external cause; Y99.8 Other external cause status

== ENCOUNTER → 2022-06-28 | Outpatient (CLI) | payer OTHER ==
[~2022-06-28] MED LIST changes: +CEFTRIAXON2 GM/50 ML IV
== END | disposition home or self-care (01) ==
LOC: TELEHEALTH 01:18
PROVIDERS: ATTEND Internal Medicine Infectious Disease
DX: I12.9 Hypertensive chronic kidney disease with stage 1 through stage 4 chronic kidney disease, or unspecified chronic kidney disease (principal); E11.22 Type 2 diabetes mellitus with diabetic chronic kidney disease; N18.30 Chronic kidney disease, stage 3 unspecified; D63.1 Anemia in chronic kidney disease; D72.819 Decreased white blood cell count, unspecified; Z86.16 Personal history of COVID-19; E11.51 Type 2 diabetes mellitus with diabetic peripheral angiopathy without gangrene; M86.8X7 Other osteomyelitis, ankle and foot; Z79.899 Other long term (current) drug therapy; Z79.82 Long term (current) use of aspirin

== ENCOUNTER → 2022-07-12 | Outpatient (CLI) | payer OTHER ==
[2022-07-12 10:38] LABS: EOS # 0.1 10*3/uL (0.0-0.4); EOS % 1.5 % (1.0-4.0); HEMATOCRIT 32.1 % (42.0-52.0); LYMPH # 0.8 10*3/uL (1.3-4.4); LYMPH % 19.5 % (27.0-41.0); MEAN CELL VOLUME 92.8 fl (80.0-94.0); MEAN CORPUSCULAR HGB 29.8 pg (27.0-31.0); MEAN CORPUSCULAR HGB CONC 32.1 g/dl (33.0-37.0); MEAN PLATELET VOLUME 10.9 fl (9.6-12.3); MONO # 0.5 10*3/uL (0.1-1.0); MONO % 11.2 % (3.0-9.0); NEUT # 2.7 10*3/uL (2.3-7.9); NEUT % 66.3 % (47.0-73.0); PLATELET COUNT AUTOMATED 168 10*3/uL (130-400); RED BLOOD COUNT 3.46 10*6/uL (4.50-5.90); RED CELL DISTRI WIDTH 15.2 % (0-14.5); RETICULOCYTE % 1.24 % (0.50-2.50); WHITE BLOOD COUNT 4.1 10*3/uL (4.8-10.8)
[2022-07-12 11:39] LABS: TOTAL PROTEIN 7.4 gm/dL (6.0-8.0)
[2022-07-13 05:06] LABS: HEPATITIS B SURFACE AB Non Reactive (.); HEPATITIS B SURFACE AG Negative (Negative)
[2022-07-15 15:07] LABS: A/G RATIO 0.9 (0.7-1.7); ALBUMIN 3.3 g/dL (2.9-4.4); ALPHA-1-GLOBULIN 0.3 g/dL (0.0-0.4); BETA GLOBULIN 1.2 g/dL (0.7-1.3); FREE KAPPA LIGHT CHAINS 125.9 mg/L (3.3-19.4); FREE LAMBDA LIGHT CHAINS 67.4 mg/L (5.7-26.3); GAMMA GLOBULIN 1.3 g/dL (0.4-1.8); GLOBULIN, TOTAL 3.8 g/dL (2.2-3.9); IMMUNOGLOBULIN G, QNT 1299 mg/dL (603-1613); IMMUNOGLOBULIN M, QNT 186 mg/dL (15-143); KAPPA/LAMBDA RATIO 1.87 (0.26-1.65); M-SPIKE Not Observed g/dL (Not Observed); TOTAL PROTEIN, SERUM 7.1 g/dL (6.0-8.5)
[2022-07-15 16:07] LABS: ERYTHROPOIETIN 25.8 mIU/mL (2.6-18.5)
[2022-07-20 00:06] LABS: METHYLMALONIC ACID 239 nmol/L (0-378)
== END | disposition home or self-care (01) ==
LOC: TELEHEALTH 00:55 → LAB 00:55 → TELEHEALTH 17:32
PROVIDERS: Internal Medicine; ATTEND Internal Medicine Infectious Disease
DX: D72.818 Other decreased white blood cell count (principal); D63.8 Anemia in other chronic diseases classified elsewhere; D50.0 Iron deficiency anemia secondary to blood loss (chronic); I10 Essential (primary) hypertension; K21.9 Gastro-esophageal reflux disease without esophagitis; E78.5 Hyperlipidemia, unspecified; E10.9 Type 1 diabetes mellitus without complications; Z79.899 Other long term (current) drug therapy; Z79.82 Long term (current) use of aspirin

== ENCOUNTER → 2022-07-15 | Outpatient (CLI) | payer OTHER | END | disposition home or self-care (01) | LOC: WOUNDCARE 06-13 01:58 | PROVIDERS: ATTEND Podiatrist Foot & Ankle Surgery | DX: E11.621 Type 2 diabetes mellitus with foot ulcer (principal); I70.245 Atherosclerosis of native arteries of left leg with ulceration of other part of foot; L97.512 Non-pressure chronic ulcer of other part of right foot with fat layer exposed; E11.52 Type 2 diabetes mellitus with diabetic peripheral angiopathy with gangrene; I96 Gangrene, not elsewhere classified; E11.22 Type 2 diabetes mellitus with diabetic chronic kidney disease; I12.9 Hypertensive chronic kidney disease with stage 1 through stage 4 chronic kidney disease, or unspecified chronic kidney disease; N18.30 Chronic kidney disease, stage 3 unspecified; E11.69 Type 2 diabetes mellitus with other specified complication; M86.9 Osteomyelitis, unspecified; E78.5 Hyperlipidemia, unspecified; I10 Essential (primary) hypertension; I25.2 Old myocardial infarction; K21.9 Gastro-esophageal reflux disease without esophagitis; Z87.891 Personal history of nicotine dependence; Z98.49 Cataract extraction status, unspecified eye; Z95.828 Presence of other vascular implants and grafts ==

== ENCOUNTER → 2022-07-22 | Outpatient (CLI) | payer OTHER | END | disposition home or self-care (01) | LOC: WOUNDCARE 01:17 | PROVIDERS: ATTEND Podiatrist Foot & Ankle Surgery | DX: E11.621 Type 2 diabetes mellitus with foot ulcer (principal); I70.235 Atherosclerosis of native arteries of right leg with ulceration of other part of foot; L97.512 Non-pressure chronic ulcer of other part of right foot with fat layer exposed; I70.245 Atherosclerosis of native arteries of left leg with ulceration of other part of foot; L97.522 Non-pressure chronic ulcer of other part of left foot with fat layer exposed; L84 Corns and callosities; E11.52 Type 2 diabetes mellitus with diabetic peripheral angiopathy with gangrene; A48.0 Gas gangrene; E11.22 Type 2 diabetes mellitus with diabetic chronic kidney disease; I12.9 Hypertensive chronic kidney disease with stage 1 through stage 4 chronic kidney disease, or unspecified chronic kidney disease; N18.30 Chronic kidney disease, stage 3 unspecified; E11.69 Type 2 diabetes mellitus with other specified complication; M86.9 Osteomyelitis, unspecified; E78.5 Hyperlipidemia, unspecified; I25.2 Old myocardial infarction; K21.9 Gastro-esophageal reflux disease without esophagitis; Z87.891 Personal history of nicotine dependence; Z98.49 Cataract extraction status, unspecified eye; Z95.828 Presence of other vascular implants and grafts; Z89.422 Acquired absence of other left toe(s) ==

== ENCOUNTER → 2022-07-26 | Outpatient (CLI) | payer OTHER | END | disposition home or self-care (01) | LOC: TELEHEALTH 03:19 | PROVIDERS: ATTEND Internal Medicine | DX: D50.0 Iron deficiency anemia secondary to blood loss (chronic) (principal); I12.9 Hypertensive chronic kidney disease with stage 1 through stage 4 chronic kidney disease, or unspecified chronic kidney disease; E11.22 Type 2 diabetes mellitus with diabetic chronic kidney disease; N18.30 Chronic kidney disease, stage 3 unspecified; D63.8 Anemia in other chronic diseases classified elsewhere; Z79.02 Long term (current) use of antithrombotics/antiplatelets; Z79.82 Long term (current) use of aspirin; Z79.899 Other long term (current) drug therapy ==

== ENCOUNTER → 2022-08-09 | Outpatient (CLI) | payer OTHER | END | disposition home or self-care (01) | LOC: TELEHEALTH 01:56 | PROVIDERS: ATTEND Internal Medicine Infectious Disease | DX: M86.9 Osteomyelitis, unspecified (principal); D72.819 Decreased white blood cell count, unspecified; A41.9 Sepsis, unspecified organism; I10 Essential (primary) hypertension; E78.5 Hyperlipidemia, unspecified; E10.9 Type 1 diabetes mellitus without complications; K21.9 Gastro-esophageal reflux disease without esophagitis; Z79.899 Other long term (current) drug therapy; Z79.02 Long term (current) use of antithrombotics/antiplatelets; Z79.4 Long term (current) use of insulin ==

== ENCOUNTER → 2022-08-12 | Outpatient (CLI) | payer OTHER | END | disposition home or self-care (01) | LOC: WOUNDCARE 02:05 | PROVIDERS: ATTEND Podiatrist Foot & Ankle Surgery | DX: E11.621 Type 2 diabetes mellitus with foot ulcer (principal); I70.245 Atherosclerosis of native arteries of left leg with ulceration of other part of foot; L97.522 Non-pressure chronic ulcer of other part of left foot with fat layer exposed; I70.235 Atherosclerosis of native arteries of right leg with ulceration of other part of foot; L97.512 Non-pressure chronic ulcer of other part of right foot with fat layer exposed; L89.890 Pressure ulcer of other site, unstageable; E11.52 Type 2 diabetes mellitus with diabetic peripheral angiopathy with gangrene; A48.0 Gas gangrene; E11.22 Type 2 diabetes mellitus with diabetic chronic kidney disease; I12.9 Hypertensive chronic kidney disease with stage 1 through stage 4 chronic kidney disease, or unspecified chronic kidney disease; N18.30 Chronic kidney disease, stage 3 unspecified; E11.69 Type 2 diabetes mellitus with other specified complication; M86.9 Osteomyelitis, unspecified; E78.5 Hyperlipidemia, unspecified; K21.9 Gastro-esophageal reflux disease without esophagitis; Z87.891 Personal history of nicotine dependence; Z98.49 Cataract extraction status, unspecified eye; Z95.828 Presence of other vascular implants and grafts; Z89.422 Acquired absence of other left toe(s) ==

== ENCOUNTER → 2022-08-19 | Outpatient (CLI) | payer OTHER | LOC: WOUNDCARE 01:26 | PROVIDERS: ATTEND Podiatrist Foot & Ankle Surgery | DX: E11.621 Type 2 diabetes mellitus with foot ulcer (principal); L97.512 Non-pressure chronic ulcer of other part of right foot with fat layer exposed; L89.890 Pressure ulcer of other site, unstageable; I70.245 Atherosclerosis of native arteries of left leg with ulceration of other part of foot; L97.522 Non-pressure chronic ulcer of other part of left foot with fat layer exposed; E11.52 Type 2 diabetes mellitus with diabetic peripheral angiopathy with gangrene; A48.0 Gas gangrene; E78.5 Hyperlipidemia, unspecified; E11.22 Type 2 diabetes mellitus with diabetic chronic kidney disease; I12.9 Hypertensive chronic kidney disease with stage 1 through stage 4 chronic kidney disease, or unspecified chronic kidney disease; N18.30 Chronic kidney disease, stage 3 unspecified; I25.2 Old myocardial infarction; E11.69 Type 2 diabetes mellitus with other specified complication; M86.9 Osteomyelitis, unspecified; K21.9 Gastro-esophageal reflux disease without esophagitis; Z87.891 Personal history of nicotine dependence; Z98.49 Cataract extraction status, unspecified eye; Z95.828 Presence of other vascular implants and grafts; Z89.422 Acquired absence of other left toe(s) ==

== ENCOUNTER → 2022-08-26 | Outpatient (CLI) | payer OTHER | END | disposition home or self-care (01) | LOC: WOUNDCARE 01:41 | PROVIDERS: ATTEND Podiatrist Foot & Ankle Surgery | DX: E11.621 Type 2 diabetes mellitus with foot ulcer (principal); I70.235 Atherosclerosis of native arteries of right leg with ulceration of other part of foot; L97.512 Non-pressure chronic ulcer of other part of right foot with fat layer exposed; I70.245 Atherosclerosis of native arteries of left leg with ulceration of other part of foot; L97.522 Non-pressure chronic ulcer of other part of left foot with fat layer exposed; L89.890 Pressure ulcer of other site, unstageable; E11.52 Type 2 diabetes mellitus with diabetic peripheral angiopathy with gangrene; A48.0 Gas gangrene; E11.22 Type 2 diabetes mellitus with diabetic chronic kidney disease; I12.9 Hypertensive chronic kidney disease with stage 1 through stage 4 chronic kidney disease, or unspecified chronic kidney disease; N18.30 Chronic kidney disease, stage 3 unspecified; E11.69 Type 2 diabetes mellitus with other specified complication; M86.9 Osteomyelitis, unspecified; I25.2 Old myocardial infarction; E78.5 Hyperlipidemia, unspecified; K21.9 Gastro-esophageal reflux disease without esophagitis; Z87.891 Personal history of nicotine dependence; Z98.49 Cataract extraction status, unspecified eye; Z95.828 Presence of other vascular implants and grafts; Z89.422 Acquired absence of other left toe(s) ==

== ENCOUNTER → 2022-09-01 | Outpatient (CLI) | payer MEDICARE | END | disposition home or self-care (01) | LOC: LAB 18:23 | PROVIDERS: ATTEND Internal Medicine | DX: E78.5 Hyperlipidemia, unspecified (principal); D64.9 Anemia, unspecified; R78.81 Bacteremia ==

== ENCOUNTER → 2022-09-06 | Outpatient (CLI) | payer MEDICARE, OTHER | END | disposition home or self-care (01) | LOC: TELEHEALTH 00:45 | PROVIDERS: ATTEND Internal Medicine Infectious Disease | DX: I12.9 Hypertensive chronic kidney disease with stage 1 through stage 4 chronic kidney disease, or unspecified chronic kidney disease (principal); E11.22 Type 2 diabetes mellitus with diabetic chronic kidney disease; N18.30 Chronic kidney disease, stage 3 unspecified; M86.8X7 Other osteomyelitis, ankle and foot; Z79.899 Other long term (current) drug therapy ==

== ENCOUNTER → 2022-09-09 | Outpatient (CLI) | payer MEDICARE, OTHER | END | disposition home or self-care (01) | LOC: WOUNDCARE 01:36 | PROVIDERS: ATTEND Podiatrist Foot & Ankle Surgery | DX: E11.621 Type 2 diabetes mellitus with foot ulcer (principal); I70.245 Atherosclerosis of native arteries of left leg with ulceration of other part of foot; L97.522 Non-pressure chronic ulcer of other part of left foot with fat layer exposed; I70.235 Atherosclerosis of native arteries of right leg with ulceration of other part of foot; L97.512 Non-pressure chronic ulcer of other part of right foot with fat layer exposed; E11.52 Type 2 diabetes mellitus with diabetic peripheral angiopathy with gangrene; A48.0 Gas gangrene; E11.22 Type 2 diabetes mellitus with diabetic chronic kidney disease; I12.9 Hypertensive chronic kidney disease with stage 1 through stage 4 chronic kidney disease, or unspecified chronic kidney disease; N18.30 Chronic kidney disease, stage 3 unspecified; E11.69 Type 2 diabetes mellitus with other specified complication; M86.9 Osteomyelitis, unspecified; E78.5 Hyperlipidemia, unspecified; I25.2 Old myocardial infarction; K21.9 Gastro-esophageal reflux disease without esophagitis; Z87.891 Personal history of nicotine dependence; Z98.49 Cataract extraction status, unspecified eye; Z89.422 Acquired absence of other left toe(s); Z95.828 Presence of other vascular implants and grafts ==

== ENCOUNTER → 2022-11-22 | Outpatient (CLI) | payer MEDICARE ==
[~2022-11-22] MED LIST changes: +AMIODARONE HYD200 MG PO; +ATORVASTATIN CA10 M1 PO; +BUMETANIDE1 MG PO; +CLOPIDOGREL75 MG PO; +DULCOLAX10 M1 R; +ELIQUIS5 M1 PO; +GLIPIZIDE10 M2 PO; +HUMALOG100 UNIT/2 SQ; +INSULIN GL100 UNIT/5 SC; +LISINOPRIL5 MG PO; +PACERONE200 MG PO; +ROSUVASTATIN CA40 MG PO; +TOPCARE PAIN R500 MG PO; +TRAMADOL HCL50 MG PO; +[UNRECOGNIZED DRUG - CODE] PO; +[UNRECOGNIZED DRUG - OTHER] PO
== END | disposition home or self-care (01) ==
LOC: TELEHEALTH 01:00
PROVIDERS: ATTEND Internal Medicine Gastroenterology
DX: Z53.9 Procedure and treatment not carried out, unspecified reason (principal)

== ENCOUNTER 2022-12-04 14:25 | Inpatient (IN) | payer OTHER, MEDICARE ==
[~2022-12-04] VITALS: Ht 170.1 cm; Wt 89.9 kg
[2022-12-04] VITALS (9 sets, daily range): BP systolic 64–105; BP diastolic 34–49
[~2022-12-04 14:25] MED LIST changes: -AMIODARONE HYD200 MG PO; -CLOPIDOGREL75 MG PO; -DULCOLAX10 M1 R; -GLIPIZIDE10 M2 PO; -INSULIN GL100 UNIT/5 SC; -LISINOPRIL5 MG PO; -ROSUVASTATIN CA40 MG PO; -TOPCARE PAIN R500 MG PO; -TRAMADOL HCL50 MG PO; -[UNRECOGNIZED DRUG - CODE] PO; -[UNRECOGNIZED DRUG - OTHER] PO
[2022-12-04 15:02] LABS: HEMATOCRIT 30.3 % (42.0-52.0); MEAN CELL VOLUME 93.2 fl (80.0-94.0); MEAN CORPUSCULAR HGB 29.8 pg (27.0-31.0); PLATELET COUNT AUTOMATED 165 10*3/uL (130-400); RED BLOOD COUNT 3.25 10*6/uL (4.50-5.90); WHITE BLOOD COUNT 12.7 10*3/uL (4.8-10.8)
[2022-12-04 15:03] LABS: MANUAL DIFF REFLEX YES
[2022-12-04 15:13] LABS: ACT PARTIAL THROMBO TIME 30.2 SECONDS (20.0-32.1); INTERNATIONAL NORM RATIO 1.3 (2.0-3.5)
[2022-12-04 15:25] LABS: POTASSIUM 4.1 mmol/L (3.4-5.1); TOTAL PROTEIN 6.8 gm/dL (6.0-8.0)
[2022-12-04 15:29] LABS: BASOPHILS 1 % (0-1); PLATELET SUFFICIENCY NORMAL (NORMAL); POLYCHROMASIA SLIGHT; TOTAL CELLS COUNTED 100 #CELLS; TOXIC GRANULATION SLIGHT
[2022-12-04 15:30] LABS: ACANTHOCYTES FEW
[2022-12-04] MEDS ORDERED: NORVASC10 MG PO (17:33)
[2022-12-04] MEDS ORDERED: CLOPIDOGREL75 MG PO (17:34)
[2022-12-04] MEDS ORDERED: [UNRECOGNIZED DRUG - CODE] PO (17:38)
[2022-12-04] MEDS ORDERED: GLIPIZIDE10 M2 PO (17:39)
[2022-12-04] MEDS ORDERED: TRAMADOL HCL50 MG PO (17:43)
[2022-12-04] MEDS ORDERED: LISINOPRIL5 MG PO (17:44)
[2022-12-04] MEDS ORDERED: ROSUVASTATIN CA40 MG PO (17:45)
[2022-12-05] VITALS (90 sets, daily range): BP systolic 11–139; BP diastolic 18–74
[2022-12-05] MEDS ORDERED: TOPCARE PAIN R500 MG PO (00:30)
[2022-12-05] MEDS ORDERED: AMIODARONE HYD200 MG PO (00:31)
[2022-12-05] MEDS ORDERED: [UNRECOGNIZED DRUG - OTHER] PO (00:32)
[2022-12-05] MEDS ORDERED: DULCOLAX10 M1 R (00:42)
[2022-12-05] MEDS ORDERED: INSULIN GL100 UNIT/5 SC (00:44)
[2022-12-05 01:14] LABS: ABG BASE EXCESS 3.9 mmol/L (-2.0-2.0); ARTERIAL BLOOD GAS PH 7.351 (7.35-7.45); ARTERIAL BLOOD GAS PO2 181.8 (80-90)
[2022-12-05 06:09] LABS: HEMATOCRIT 29.3 % (42.0-52.0); MEAN CORPUSCULAR HGB 30.2 pg (27.0-31.0); MEAN CORPUSCULAR HGB CONC 32.4 g/dl (33.0-37.0); MEAN PLATELET VOLUME 11.9 fl (9.6-12.3); PLATELET COUNT AUTOMATED 207 10*3/uL (130-400); RED BLOOD COUNT 3.15 10*6/uL (4.50-5.90); RED CELL DISTRI WIDTH 17.2 % (0-14.5); WHITE BLOOD COUNT 18.5 10*3/uL (4.8-10.8)
[2022-12-05 06:31] LABS: MANUAL DIFF REFLEX YES
[2022-12-05 06:33] LABS: FREE T4 1.3 ng/dl (0.89-1.76); TOTAL PROTEIN 6.7 gm/dL (6.0-8.0)
[2022-12-05 06:53] LABS: OVALOCYTES FEW; PLATELET SUFFICIENCY NORMAL (NORMAL); TOTAL CELLS COUNTED 100 #CELLS
[2022-12-05 07:31] LABS: ACT PARTIAL THROMBO TIME 34.3 SECONDS (20.0-32.1); INTERNATIONAL NORM RATIO 1.4 (2.0-3.5)
[2022-12-05 10:18] LABS: BILIRUBIN Negative (Negative); BLOOD 1+ (Negative); CLARITY Cloudy (Clear); COLOR Yellow (Yellow); GLUCOSE Negative (Negative); KETONE Negative (Negative); LEUKO ESTERASE Negative (Negative); NITRITE Negative (Negative); SPECIFIC GRAVITY 1.015 (1.001-1.030)
[2022-12-05 10:30] LABS: BACTERIA 3+
[2022-12-06] VITALS (60 sets, daily range): BP systolic 73–119; BP diastolic 35–100
[2022-12-06 06:41] LABS: MEAN CELL VOLUME 93.5 fl (80.0-94.0); MEAN CORPUSCULAR HGB 30.1 pg (27.0-31.0); MEAN CORPUSCULAR HGB CONC 32.2 g/dl (33.0-37.0); MEAN PLATELET VOLUME 11.4 fl (9.6-12.3); PLATELET COUNT AUTOMATED 160 10*3/uL (130-400); RED BLOOD COUNT 2.46 10*6/uL (4.50-5.90); RED CELL DISTRI WIDTH 17.2 % (0-14.5); WHITE BLOOD COUNT 14.3 10*3/uL (4.8-10.8)
[2022-12-06 06:47] LABS: MANUAL DIFF REFLEX YES
[2022-12-06 07:04] LABS: POTASSIUM 4.2 mmol/L (3.4-5.1); TOTAL PROTEIN 6.6 gm/dL (6.0-8.0)
[2022-12-06 07:39] LABS: PLATELET SUFFICIENCY NORMAL (NORMAL); POLYCHROMASIA SLIGHT; TOTAL CELLS COUNTED 100 #CELLS
[2022-12-06 07:40] LABS: ACANTHOCYTES FEW; BURR CELLS FEW; OVALOCYTES FEW
== END 2022-12-06 15:47 | disposition short-term general hospital (02) | DRG 871 ==
LOC: ED 14:25 → ICCU 16:53 → EDHOLD 16:53 → 5E 21:30 → ICCU 21:44
PROVIDERS: Emergency Medicine; Family Medicine; Internal Medicine Critical Care Medicine; ADMIT Student in an Organized Health Care Education/Training Program; ATTEND Student in an Organized Health Care Education/Training Program
PROC: 02HV33Z Insertion of Infusion Device into Superior Vena Cava, Percutaneous Approach (ICD-10-PCS; principal; 2022-12-04)
PROC: B548ZZA Ultrasonography of Superior Vena Cava, Guidance (ICD-10-PCS; 2022-12-04)
PROC: 5A0935A Assistance with Respiratory Ventilation, Less than 24 Consecutive Hours, High Flow/Velocity Cannula (ICD-10-PCS; 2022-12-05)
DX: A41.9 Sepsis, unspecified organism (principal); E43 Unspecified severe protein-calorie malnutrition; I50.33 Acute on chronic diastolic (congestive) heart failure; J81.0 Acute pulmonary edema; N17.0 Acute kidney failure with tubular necrosis; R65.21 Severe sepsis with septic shock; E87.20 Acidosis, unspecified; R18.8 Other ascites; J91.8 Pleural effusion in other conditions classified elsewhere; I48.92 Unspecified atrial flutter; I48.21 Permanent atrial fibrillation; I13.0 Hypertensive heart and chronic kidney disease with heart failure and stage 1 through stage 4 chronic kidney disease, or unspecified chronic kidney disease; K52.9 Noninfective gastroenteritis and colitis, unspecified; E86.0 Dehydration; I25.10 Atherosclerotic heart disease of native coronary artery without angina pectoris; K21.9 Gastro-esophageal reflux disease without esophagitis; E11.51 Type 2 diabetes mellitus with diabetic peripheral angiopathy without gangrene; E78.5 Hyperlipidemia, unspecified; K74.60 Unspecified cirrhosis of liver; N18.30 Chronic kidney disease, stage 3 unspecified; I49.8 Other specified cardiac arrhythmias; E11.65 Type 2 diabetes mellitus with hyperglycemia; E66.3 Overweight; D50.8 Other iron deficiency anemias; K76.0 Fatty (change of) liver, not elsewhere classified; M85.89 Other specified disorders of bone density and structure, multiple sites; N32.89 Other specified disorders of bladder; S31.829A Unspecified open wound of left buttock, initial encounter; S31.819A Unspecified open wound of right buttock, initial encounter; X58.XXXA Exposure to other specified factors, initial encounter; Z87.891 Personal history of nicotine dependence; Z89.432 Acquired absence of left foot; Z98.42 Cataract extraction status, left eye; Z98.41 Cataract extraction status, right eye; I25.2 Old myocardial infarction; Z79.4 Long term (current) use of insulin; Y93.89 Activity, other specified; Y92.89 Other specified places as the place of occurrence of the external cause; Y99.8 Other external cause status; Z68.29 Body mass index [BMI] 29.0-29.9, adult